=== PATIENT | male | born 1960 | race Caucasian/White ===

== ENCOUNTER 2021-05-09 18:46 | Observation (INO) | payer MEDICARE ==
[2021-05-09] MEDS ORDERED: Oxymetazoline HCl 0.05% ( 15 ML ) ONE (19:47)
[2021-05-09] MEDS ORDERED: Lidocaine 1% w/Epinephrine 1:100K 20 ML VIAL ONE (19:48)
[2021-05-09] MEDS ORDERED: Ondansetron PF 4 MG/2 ML Vial ONE (20:07)
[2021-05-09] MEDS ORDERED: Rocuronium Bromide 10 MG/ML (10ML VIAL) ONE (20:07)
[2021-05-09] MEDS ORDERED: Dexamethasone 4 mg/ml Vial ONE (20:07)
[2021-05-09] MEDS ORDERED: Fentanyl 100 MCG/2 ML VIAL ONE (20:07)
[2021-05-09] MEDS ORDERED: PROPOFOL 20 ML ONE (20:07)
[2021-05-09] MEDS ORDERED: Lidocaine 2% PF 5 ML VIAL ONE (20:07)
[2021-05-09] MEDS ORDERED: Succinylcholine 200 MG/10 ml SYRINGE FS ONE (20:07)
[2021-05-09] MEDS ORDERED: Glycopyrrolate 0.2 MG/ML 5 ML SYRINGE ONE (20:35)
[2021-05-09] MEDS ORDERED: SUGAMMADEX SODIUM 200 MG/2 ML VIAL ONE (20:39)
[2021-05-09] MEDS ORDERED: Senokot S 8.6-50 MG TAB PO PRN (21:30)
[2021-05-09] MEDS ORDERED: HYDROcodone/Acetaminophen 5/325 mg Tablet PO PRN (21:30)
[2021-05-09] MEDS ORDERED: Guaifenesin DM 100-10/5 ML UDCUP PO PRN (21:30)
[2021-05-09] MEDS ORDERED: Acetaminophen 325 MG TAB PO PRN (21:30)
[2021-05-09] MEDS ORDERED: Ondansetron PF 4 MG/2 ML Vial IVP PRN (21:30)
[2021-05-09] MEDS ORDERED: Calcium Carbonate 500 MG ChewTAB PO PRN (21:30)
[2021-05-09] MEDS ORDERED: hydrALAZINE 20 MG/ML VIAL SLOW IVP PRN (21:32)
[2021-05-09] MEDS ORDERED: Metoprolol Tartrate 25 MG TAB PO SCH (21:45)
[2021-05-09 22:45] VITALS: BMI 29.9
[2021-05-10 04:29] LABS: #Monocytes 0.2 10x3/uL (0.0-1.1); #Neutrophils 8.9 10x3/uL (1.5-8.4); %Basophils 0.2 % (0.0-2.0); %Lymphocytes 6.5 % (18.0-47.0); %Monocytes 2.3 % (0.0-10.0); %Neutrophils 90.6 % (40.0-75.0); Hemoglobin 15.3 g/dL (13.5-17.5); Mean Corpuscular HGB CONC 35.7 g/dL (32.0-36.0); Mean Corpuscular Volume 86.6 fl (81.2-95.1); Mean Platelet Volume 10.3 fl (7.4-10.4); Platelet Count 217 10x3/uL (150-450); RBC Distribution Width 11.9 % (11.5-14.5); Red Blood Cell (RBC) Count 4.94 10x6/uL (4.32-5.72); White Blood Cell (WBC) Count 9.9 10x3/uL (3.5-10.5)
[2021-05-10 04:46] LABS: Anion Gap 15 mmol/L (10-20); BUN (Urea Nitrogen) 14 mg/dL (8.4-25.7); Calc. Creatinine Clearance 111 mL/min (70-130); Calcium 9.2 mg/dL (7.8-10.44); Carbon Dioxide 25 mmol/L (23-31); Chloride 96 mmol/L (98-107); Glucose 143 mg/dL (80-115); Potassium 4.6 mmol/L (3.5-5.1); Sodium 131 mmol/L (136-145)
[2021-05-10] MEDS ORDERED: hydrALAZINE 25 MG TAB PO SCH (09:00)
[2021-05-10] MEDS ORDERED: Aspirin 81 mg Enteric Coated Tablet PO SCH (09:00)
[2021-05-10] MEDS ORDERED: Famotidine 20 MG TAB PO SCH (09:00)
[2021-05-10] MEDS ORDERED: Oxymetazoline HCl 0.05% ( 15 ML ) NASAL SCH (09:00)
[2021-05-10] MEDS ORDERED: Amlodipine 5 MG TAB PO SCH (09:00)
[2021-05-10] MEDS ORDERED: Clindamycin 150 MG CAP PO SCH (09:00)
[2021-05-10 12:17] VITALS: BP 118/59; TEMP 98.4
[2021-05-10] MEDS ORDERED: Atorvastatin Calcium 20 MG TAB PO SCH (21:00)
== END 2021-05-10 13:10 | disposition home or self-care (01) ==
LOC: CSHERS 18:46 → CSHTELE 22:38
PROVIDERS: ADMIT Student in an Organized Health Care Education/Training Program; ATTEND Nurse Practitioner Family
PROC: 095K4ZZ Destruction of Nasal Mucosa and Soft Tissue, Percutaneous Endoscopic Approach (ICD-10-PCS; principal; 2021-05-09)
PROC: 095K3ZZ Destruction of Nasal Mucosa and Soft Tissue, Percutaneous Approach (ICD-10-PCS; 2021-05-09)
PROC: 2Y41X5Z Packing of Nasal Region using Packing Material (ICD-10-PCS; 2021-05-09)
DX: R04.0 Epistaxis (principal); E87.1 Hypo-osmolality and hyponatremia; I48.0 Paroxysmal atrial fibrillation; E78.5 Hyperlipidemia, unspecified; I12.9 Hypertensive chronic kidney disease with stage 1 through stage 4 chronic kidney disease, or unspecified chronic kidney disease; N18.2 Chronic kidney disease, stage 2 (mild); Z79.01 Long term (current) use of anticoagulants; Z79.82 Long term (current) use of aspirin; F32.A Depression, unspecified
CPT/HCPCS: 36415; 80048; 85025; 94640; 94760; 99284; G0378; J1100; J2001; J2405; J2704; J3010; J3490